=== PATIENT | male | born 1945 | race Caucasian/White ===

== ENCOUNTER 2017-02-02 12:21 | Observation (INO) | payer OTHER ==
--- NOTE | 2017-02-02 09:49 | GHP ---
[f rep st] PREOP HISTORY AND PHYSICAL ADMISSION DIAGNOSIS: Benign prostatic hypertrophy, urinary retention, elevated prostate-specific antigen. HISTORY OF PRESENT ILLNESS: This is a 71-year-old gentleman whom I have seen because of elevated PSA, who most recently had developed urinary retention because of prostatomegaly. Options have been discussed and he presently is admitted for transurethral resection of the prostate. His most recent PSA was 4.75 on 10/25/2016, and he had a transrectal ultrasound of the prostate that revealed a volume of 88.3 cc and PSA density 0.05. He had had a cystoscopy on 01/31/2017 that revealed inflammatory polyps of the prostatic urethra, +3 to 4 trabeculation of the bladder, and large intravesical lobe of the prostate with hyperemia. He has no family history of prostate cancer, and at the present time he is admitted for transurethral resection of the prostate. Options, indications, and complications associated with this procedure were discussed, and his is well informed in this matter also. PAST MEDICAL HISTORY: He has had gastric reflux, myocardial infarction, hypertension, hypercholesterolemia, and prostatitis. PREVIOUS SURGERIES: Angioplasty, bypass, and prostate biopsy that was benign in nature. MEDICATION HISTORY: Aspirin, atorvastatin, carvedilol, hydrochlorothiazide, irbesartan, nitroglycerin p.r.n., omeprazole p.r.n., Proscar, and tamsulosin. ALLERGIES: None. FAMILY HISTORY: Heart disease and hypertension. SOCIAL HISTORY: Moderate alcohol consumption. Nonsmoker. REVIEW OF SYSTEMS: Constitutional review of systems negative for cardiac, respiratory, GI, and endocrine presently. PHYSICAL EXAMINATION: VITAL SIGNS: Stable. CHEST: Clear. HEART: Regular rate and rhythm. ABDOMEN: Normal. No organomegaly, rebound, or guarding. LOWER EXTREMITIES: Normal. : Prostate was greater than 50 g. IMPRESSION AND PLAN: At the time of urinary retention, his bladder had 292 mL in it, and at the present time he is admitted for transurethral resection of the prostate. /[id number]/MODL MTDD
[2017-02-02] MEDS ORDERED: ceFAZolin 2 GM/SWFI 2 GM/20 ML SYR IVP ONE (13:17)
--- NOTE | 2017-02-02 13:17 | PDHPUP ---
History & Physical Update H&P update statement: This history and physical update is based on an assessment of the patient which was completed after admission or registration (within 24 hours), but prior to the surgery/procedure. H&P update: H&P reviewed & patient examined, no change in patient's condition since H&P completed
[2017-02-02] MEDS ORDERED: LR 1,000 ML IV ONE (13:23)
[2017-02-02] MEDS ORDERED: LIDOCAINE 1% 2 ML INJ ID PRN (13:23)
[2017-02-02] MEDS ORDERED: LIDOCAINE 2% JELLY 20 ML (UROJECT) ONE (13:34)
[2017-02-02 14:28] LABS: ANION GAP 21 mEq/L (8-16); CALCIUM 9.5 mg/dL (8.5-10.4); CARBON DIOXIDE 24 mEq/l (22-31); CHLORIDE 106 mEq/L (97-110); CREATININE 0.9 mg/dL (0.7-1.3); GLOMERULAR FILTRATION RATE > 60; GLUCOSE 83 mg/dL (70-100); POTASSIUM 3.5 mEq/L (3.5-5.2); SODIUM 151 mEq/L (134-144)
[2017-02-02] MEDS ORDERED: MIDAZOLAM 2 MG/2 ML VIAL IVP ONE (14:44)
--- NOTE | 2017-02-02 14:46 | PDANEPAE ---
ANE Past Medical History - Cardiovascular History Hx Hypertension: Yes Hx Arrhythmias: No Hx Chest Pain: No Hx Coronary Artery / Peripheral Vascular Disease: Yes Hx CHF / Valvular Disease: No Hx Palpitations: No Cardiovascular History Comment: [place] 2003 - Pulmonary History Hx COPD: No Hx Asthma/Reactive Airway Disease: No Hx Recent Upper Respiratory Infection: No Hx Oxygen in Use at Home: No Hx Sleep Apnea: Yes Sleep Apnea Screening Result - Last Documented: Positive Pulmonary History Comment: KOBE USES C-PAP INSTRUCTED TO BRING DOS - Neurologic History Hx Cerebrovascular Accident: No Hx Seizures: No Hx Dementia: No - Endocrine History Hx Diabetes: No - Renal History Hx Renal Disorders: Yes Renal History Comment: BPH - Liver History Hx Hepatic Disorders: No - Neurological & Psychiatric Hx Hx Neurological and Psychiatric Disorders: No - Cancer History Hx Cancer: Yes Cancer History Comment: MOH'S LT CHEEK - Congenital Disorder History Hx Congenital Disorders: No - GI History Hx Gastrointestinal Disorders: Yes Gastrointestinal History Comment: MILD HIATAL HERNIA. MILD REFLUX. 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 COLONOSCOPY. TONSILLECTOMY. APPY. LT CLAVICLE ANE Review of Systems Review of Systems: - Exercise capacity Exercise capacity: >=4 METS METS (RN): 4 METS ANE Patient History - Allergies Allergies/Adverse Reactions: No Known Allergies Allergy (Verified 04/13/14 17:33) - Home Medications Home Medications: Aspirin [Aspirin 81mg (*)] 81 mg PO HS 04/13/14 [Last Taken 01/29/17 17:00] Carvedilol [Coreg (*)] 6.25 mg PO BIDMEAL 04/13/14 [Last Taken 02/02/17 06:30] Omeprazole [Prilosec] 40 mg PO DAILY06 04/13/14 [Last Taken 02/02/17 06:30] Tamsulosin HCl [Flomax 0.4 MG (*)] 0.4 mg PO DAILY16 04/13/14 [Last Taken 17:00] Atorvastatin Calcium DAILY06 02/01/17 [Last Taken 02/02/17 06:30] Finasteride DAILY AT 6PM 02/01/17 [Last Taken 02/01/17 17:00] Hydrochlorothiazide DAILY06 02/01/17 [Last Taken 02/01/17 07:00] Irbesartan DAILY06 02/01/17 [Last Taken 02/02/17 06:30] Nitrostat 0.4 mg (*) PRN 02/01/17 [Last Taken Unknown] - NPO status NPO Status: no food or drink >8 hours NPO Since - Liquids (Date): 02/02/17 NPO Since - Liquids (Time): 10:30 NPO Since - Solids (Date): 02/01/17 NPO Since - Solids (Time): 18:00 - Anes Hx Anes Hx: no prior problems - Smoking Hx Smoking Status: Never smoked ANE Labs/Vital Signs - Labs Result Diagrams: 02/02/17 13:55 - Vital Signs Blood Pressure: 131/79 Heart Rate: 61 Respiratory Rate: 16 O2 Sat (%): 98 Height: 170.18 cm Weight: 83.461 kg ANE Physical Exam - Airway Neck exam: FROM Mallampati Score: Class 2 Mouth exam: normal dental/mouth exam - Pulmonary Pulmonary: no respiratory distress, clear to auscultation - Cardiovascular Cardiovascular: regular rate and rhythym, no murmur, rub, or gallop - ASA Status ASA Status: III ANE Anesthesia Plan Anesthesia Plan: general endotracheal anesthesia
[2017-02-02] MEDS ORDERED: PROPOFOL 200 MG/20 ML VIAL ONE (14:57)
[2017-02-02] MEDS ORDERED: fentaNYL 100 MCG/2 ML INJ ONE ×3 (14:57→16:55)
[2017-02-02] MEDS ORDERED: SUCCINYLCHOLINE CHLORIDE*ANESTHESIA ONLY*200 MG/10 ML SYR IVP ONE (15:01)
[2017-02-02] MEDS ORDERED: ROCURONIUM 50 MG/5 ML VIAL ONE (15:35)
[2017-02-02] MEDS ORDERED: LABETALOL HCL 5 MG/ML 20 ML MDV ONE (15:48)
[2017-02-02] MEDS ORDERED: SUGAMMADEX SODIUM 200 MG/2 ML VIAL IVP ONE (16:09)
[2017-02-02] MEDS ORDERED: ONDANSETRON DISINTEGRATING 4 MG TAB PO PRN (16:39)
[2017-02-02] MEDS ORDERED: OPIUM/BELLADONNA ALKALO SUPP PR PRN (16:39)
[2017-02-02] MEDS ORDERED: ONDANSETRON 4 MG/2 ML VIAL IVP PRN ×2 (16:39→16:41)
[2017-02-02] MEDS ORDERED: ACETAMINOPHEN 325 MG TAB PO PRN (16:39)
[2017-02-02] MEDS ORDERED: ZOLPIDEM TARTRATE 5 MG TAB PO PRN (16:39)
[2017-02-02] MEDS ORDERED: HYDROCODONE/APAP 5/325 TAB PO PRN (16:39)
[2017-02-02] MEDS ORDERED: OXYCODONE/APAP 5/325 TAB PO PRN (16:41)
[2017-02-02] MEDS ORDERED: NALOXONE HCL 0.4 MG/ML INJ IVP PRN (16:41)
[2017-02-02] MEDS ORDERED: MEPERIDINE 25 MG/ML SYR IVP PRN (16:41)
[2017-02-02] MEDS ORDERED: LABETALOL HCL 5 MG/ML 20 ML MDV IVP PRN (16:41)
[2017-02-02] MEDS ORDERED: fentaNYL 100 MCG/2 ML INJ IVP PRN (16:41)
[2017-02-02] MEDS ORDERED: ENALAPRILAT DIHYDRATE 1.25 MG/ML VIAL IVP PRN (16:41)
[2017-02-02] MEDS ORDERED: ACETAMINOPHEN 500 MG TAB PO PRN (16:41)
[2017-02-02] MEDS ORDERED: LR 500 ML IV PRN (16:41)
[2017-02-02] MEDS ORDERED: PROMETHAZINE HCL 25 MG/ML INJ IVP PRN (16:41)
--- NOTE | 2017-02-02 16:43 | POSTANESTH ---
Post Anesthetic Evaluation Cardiovascular Status: Normal, Stable, Similar to Pre-Op Cond Respiratory Status: Normal, Stable, Similar to Pre-op Cond. Level of Consciousness/Mental Status: Can Participate in Eval, Alert and Oriented Pain Control: Adequate, Prn Tx Ordered Nausea/Vomiting Control: Adequate, Prn Tx Ordered Complications Possibly Related to Anesthesia: None Noted
--- NOTE | 2017-02-02 16:43 | POSTOPPROG ---
Post Op Note Date of Operation: 02/02/17 Surgeon: Khoi Whitaker Anesthesia: LMA Pre-op Diagnosis: bph Procedure: turp Inf/Abcess present in the surg proc area at time of surgery?: No EBL: 50-100 Drains: Other (martinez) Specimen(s): sent---dictated
[2017-02-02] MEDS ORDERED: OPIUM/BELLADONNA ALKALO SUPP PR ONE (16:56)
[2017-02-02] MEDS ORDERED: HYDROmorphone HCL/NS/PF 0.4 MG/2 ML SYR IVP PRN (17:15)
[2017-02-02] MEDS ORDERED: MEPERIDINE 25 MG/ML SYR ONE (17:22)
[2017-02-02] MEDS: D5W LR 1,000 ML IV SCH (17:59)
[2017-02-03] MEDS: D5W LR 1,000 ML IV SCH ×2 (01:12→09:22)
[2017-02-03 04:35] LABS: % IMMATURE GRANULYOCYTES 0.5 % (0.0-1.1); ABSOLUTE IMMATURE GRANULOCYTES 0.06 10^3/uL (0.00-0.10); ADD DIFF? NO; ADD MORPH? NO; ADD SCAN? NO; ATYPICAL LYMPHOCYTE FLAG 0 (0-99); FRAGMENT RBC FLAG 0 (0-99); HEMATOCRIT 39.5 % (40.0-51.0); HEMOGLOBIN 13.6 g/dL (13.7-17.5); LEFT SHIFT FLG 0 (0-99); LIPEMIA HEMOLYSIS FLAG 90 (0-99); MEAN CELL HEMOGLOBIN 30.4 pg (27.9-34.1); MEAN CELL HEMOGLOBIN CONCENTR. 34.4 g/dL (32.4-36.7); MEAN CELL VOLUME 88.4 fL (81.5-99.8); MEAN PLATELET VOLUME 10.5 fL (8.7-11.7); PLATELET CLUMPS FLAG 0 (0-99); PLATELET COUNT 156 10^3/uL (150-400); RED BLOOD CELL COUNT 4.47 10^6/uL (4.40-6.38); RED CELL DISTRIBUTION WIDTH 12.4 % (11.5-15.2)
[2017-02-03 04:50] LABS: ANION GAP 9 mEq/L (8-16); CALCIUM 8.6 mg/dL (8.5-10.4); CARBON DIOXIDE 23 mEq/l (22-31); CHLORIDE 106 mEq/L (97-110); CREATININE 0.8 mg/dL (0.7-1.3); GLOMERULAR FILTRATION RATE > 60; GLUCOSE 208 mg/dL (70-100); POTASSIUM 3.9 mEq/L (3.5-5.2); SODIUM 138 mEq/L (134-144)
--- NOTE | 2017-02-03 06:48 | SOAPPROG ---
SOSUKHWINDER Progress Note Assessment/Plan: Assessment: BPH loc w urin obs/LUTS Acute POD#1, doing well Plan: DC martinez and if voids dc home, path pending 02/03/17 11:19 Subjective: ok Objective: Vital Signs Temp Pulse Resp BP Pulse Ox 36.4 C 72 15 95/53 L 97 02/03/17 04:44 02/03/17 04:44 02/03/17 04:44 02/03/17 04:44 02/03/17 04:44 Laboratory Results 02/03/17 04:26 02/03/17 04:26 02/02/17 02/03/17 02/04/17 05:59 05:59 05:59 Intake Total 3300 Output Total 3295 Balance 5 Physical Exam - Physical Exam General Appearance: alert Neck: supple Respiratory: No respiratory distress Cardiac/Chest: regular rate, rhythm Abdomen: soft Skin: normal color, warm/dry Neuro/Psych: alert, oriented x 3 ICD10 Worksheet Patient Problems: Problems Problem Status Onset BPH loc w urin obs/LUTS Acute Chest pain Acute - ICD10 Problem Qualifiers (1) BPH loc w urin obs/LUTS
[2017-02-03 08:01] VITALS: PULSE 76; RESP 16; O2SAT 95
[2017-02-03 11:30] VITALS: BP 111/61; TEMP 98
--- NOTE | 2017-02-03 12:02 | ASDISCHSUM ---
Discharge Information Plan Status: Medically Cleared to Leave: Discharge Date: CM D/C Disposition: ADT D/C Disposition:Home, Routine, Self-Care Projected Discharge Date: Transportation at D/C: Discharge Delay Reason: Follow-Up Date: Discharge Slot: Final Diagnosis: Placement Information Patient Contact Information Contact Name:JAMES Relationship: Address:[address] City:[place] Alternate Phone: State/Zip Code:[place] [address] Email: Financial Information Financial Class:Medicare Advantage Plans Primary Plan Desc:[employer] PLANS Primary Plan Number:[id number] Secondary Plan Desc: Secondary Plan Number: Assessment Information [facility] CM Progress Note CM Note CM Note Notes: Pt admitted for BPH and will DC today with no needs. Date Signed: 02/03/2017 12:01 PM Electronically Signed By:Shirley Alfred LCSW Intervention Information Intervention Type:*LEO-Signed Date of Service:02/03/2017 11:52 AM Patient Type:Observation Staff Member:Darby Coker Hours: Discipline: Severity: Comment:
--- NOTE | 2017-02-03 12:41 | GOP ---
[f rep st] OPERATIVE REPORT DATE OF OPERATION: 02/02/2017 SURGEON: Khoi Whitaker MD ANESTHESIA: General anesthesia. ANESTHESIOLOGIST: Lucas Lawson MD PREOPERATIVE DIAGNOSIS: Benign prostatic hypertrophy with urinary retention POSTOPERATIVE DIAGNOSIS: Benign prostatic hypertrophy with urinary retention. PROCEDURE PERFORMED: Transurethral resection of the prostate FINDINGS: DESCRIPTION OF PROCEDURE: After being prepped and draped in normal sterile fashion in dorsal lithoto my position, and after appropriate anesthesia, an appropriate time-out was performed. Then the resect oscope was passed into the bladder under direct vision. He had significant obstruction and almost fix ation of his prostatic fossa. At that point, the TUR was taken down. The anterior lobe of the prosta te, and then the right lateral lobe, and right posterior lobe were resected. The left lateral lobe a nd left posterior lobe were resected. At the end of the procedure, the bladder was Ellik'd free of al l chips and clots. Visualization revealed no residual chips or clots. Verumontanum preserved. Uretera l orifices preserved. Bladder had no trauma and there were minimal bleeding sites. Of interest, throu ghout this case was that with each swipe of the loop, he had significant vascularity and bleeding and the tissues seemed to be somewhat scarred and yellowish in color. It will be interesting to see what the final pathology is. Uro-Jet was placed in the urethra and a 22sAD three-way catheter passed int o the bladder over Mandarin guide. A 60 cc balloon was inflated, traction placed, and irrigated clear . He will be admitted for postoperative care. /[id number]/MODL
== END 2017-02-03 13:59 | disposition home or self-care (01) ==
LOC: F3N 13:04 → INTOOBSV 13:04 → F1N 15:25
PROVIDERS: ADMIT Specialist; ATTEND Specialist
PROC: 0VB08ZZ Excision of Prostate, Via Natural or Artificial Opening Endoscopic (ICD-10-PCS; principal; 2017-02-02 14:45)
DX: N40.1 Benign prostatic hyperplasia with lower urinary tract symptoms (principal); N13.8 Other obstructive and reflux uropathy; R35.1 Nocturia; K21.9 Gastro-esophageal reflux disease without esophagitis; I25.2 Old myocardial infarction; I10 Essential (primary) hypertension; E78.00 Pure hypercholesterolemia, unspecified; Z95.1 Presence of aortocoronary bypass graft
CPT/HCPCS: 52601; G0378; J0330; J0690; J2250; J2704; J3010; J3490

== ENCOUNTER 2018-05-08 10:02 | Inpatient (IN) | payer OTHER | END 2018-05-09 10:51 | disposition home or self-care (01) | LOC: F3E 10:02 → F3N 15:34 ==